=== PATIENT | female | born 1985 | race Caucasian/White ===

== ENCOUNTER 2017-03-25 15:15 | Outpatient (CLI) | payer MEDICARE, MEDICAID ==
--- NOTE | 2017-03-25 15:55 | RAD ---
3 VIEWS CERVICAL SPINE: Date: 03/25/17 COMPARISON: None. HISTORY: Neck pain and mid back pain. FINDINGS: Lateral views of the cervical spine were performed in neutral, flexion, and extension. There is sligh t straightening of the normal cervical lordosis in neutral. Vertebral bodies and intervertebral discs demonstrate normal height and alignment without fracture or subluxation. Alignment is unchanged with flexion and extension. No prevertebral soft tissue swelling is seen. No significant degenerative deanne nge is present. IMPRESSION: No significant change in alignment of the vertebral bodies of the cervical spine with bending. POS: [facility]
== END 2017-03-25 15:16 | disposition home or self-care (01) ==
LOC: TBSIIMAG 15:15
PROVIDERS: ATTEND Neurological Surgery
DX: M54.2 Cervicalgia (principal); M41.9 Scoliosis, unspecified; M54.6 Pain in thoracic spine
CPT/HCPCS: 72040